=== PATIENT | male | born 1950 | race Caucasian/White ===

== ENCOUNTER 2023-09-26 08:13 | Day surgery (SDC) | payer OTHER ==
[2023-09-26 09:11] LABS: MPV 6.9 fL (7.6-11.3); Platelets 276 thou/uL (152-406)
[2023-09-26 09:13] LABS: PTT, Activated Partial Thromb 30.3 SECONDS (24.3-36.9)
[2023-09-26 09:18] VITALS: BMI 27.8
[2023-09-26 12:05] VITALS: O2SAT 100
--- NOTE | 2023-09-26 12:33 | RAD REPORT ---
EXAM DESCRIPTION: RAD - Lumbar Puncture For Dx - 09/26/2023 11:00 am CLINICAL HISTORY: Dementia COMPARISON: None FINDINGS: The risks, benefits and alternatives to the procedure were explained to the patient and in formed consent obtained. The patient was placed prone into the fluoroscopy suite. The skin and subcutaneous tissues were anest hetized with lidocaine. Under fluoroscopic guidance a 22 gauge spinal needle was advanced into the th ecal sac at L4-5 level 12 cc of CSF was removed and sent to the lab. Patient experienced no immediate complication Fluoroscopy time 1.3 minutes. No fluoroscopic spot images obtained IMPRESSION: Lumbar puncture
[2023-09-26 12:42] VITALS: BP 145/82; TEMP 97.3
[2023-09-26 13:30] LABS: CSF Glucose 67 mg/dL (40-70)
[2023-09-26 13:37] LABS: Appearance CLEAR (CLEAR); Body Fluid Source CSF; Body Fluid WBC 1 /mm^3; Color of Supernate Not Xanthochromic (Not Xantho); Color of fluid Colorless (COLORLESS); Fluid Total Volume 12 ml; Tube # #3
[2023-10-03 13:58] LABS: BETA A 42/40 RATIO 0.15
== END 2023-09-26 12:43 | disposition home or self-care (01) ==
LOC: RAD 08:13 → DS 12:43
PROVIDERS: ATTEND Psychiatry & Neurology Neurology with Special Qualifications in Child Neurology
PROC: 009U3ZX Drainage of Spinal Canal, Percutaneous Approach, Diagnostic (ICD-10-PCS; principal; 2023-09-26)
PROC: B01BZZZ Fluoroscopy of Spinal Cord (ICD-10-PCS; 2023-09-26)
DX: F03.90 Unspecified dementia, unspecified severity, without behavioral disturbance, psychotic disturbance, mood disturbance, and anxiety (principal); G45.9 Transient cerebral ischemic attack, unspecified; I10 Essential (primary) hypertension; I25.10 Atherosclerotic heart disease of native coronary artery without angina pectoris; E11.9 Type 2 diabetes mellitus without complications; M19.90 Unspecified osteoarthritis, unspecified site
CPT/HCPCS: 36415; 62328; 77003; 82542; 82945; 84157; 85049; 85610; 85730; 89050